=== PATIENT | female | born 1970 | race Caucasian/White ===

== ENCOUNTER 2017-03-03 19:00 | Inpatient (IN) | payer SELFPAY ==
[2017-03-03 19:37] LABS: % IMMATURE GRANULYOCYTES 0.1 % (0.0-1.1); ABSOLUTE IMMATURE GRANULOCYTES 0.01 10^3/uL (0.00-0.10); ADD DIFF? NO; ADD MORPH? NO; ADD SCAN? NO; ATYPICAL LYMPHOCYTE FLAG 0 (0-99); FRAGMENT RBC FLAG 0 (0-99); HEMATOCRIT 41.3 % (38.0-47.0); LEFT SHIFT FLG 0 (0-99); LIPEMIA HEMOLYSIS FLAG 90 (0-99); MEAN CELL HEMOGLOBIN 29.7 pg (27.9-34.1); MEAN CELL HEMOGLOBIN CONCENTR. 33.9 g/dL (32.4-36.7); MEAN CELL VOLUME 87.7 fL (81.5-99.8); MEAN PLATELET VOLUME 8.8 fL (8.7-11.7); PLATELET CLUMPS FLAG 0 (0-99); PLATELET COUNT 253 10^3/uL (150-400); RED BLOOD CELL COUNT 4.71 10^6/uL (4.18-5.33)
[2017-03-03 19:51] LABS: ANION GAP 15 mEq/L (8-16); CALCIUM 9.2 mg/dL (8.5-10.4); CARBON DIOXIDE 21 mEq/l (22-31); CHLORIDE 102 mEq/L (97-110); CREATININE 0.6 mg/dL (0.6-1.0); ETHANOL SERUM < 10 mg/dL (0-10); GLOMERULAR FILTRATION RATE > 60; GLUCOSE 99 mg/dL (70-100); POTASSIUM 3.5 mEq/L (3.5-5.2); SODIUM 138 mEq/L (134-144)
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
[2017-03-04] MEDS ORDERED: ACETAMINOPHEN 325 MG TAB PO PRN (03:51)
[2017-03-04] MEDS ORDERED: LORazepam 0.5 MG TAB PO PRN (03:51)
[2017-03-04] MEDS ORDERED: NICOTINE POLACRILEX 2 MG GUM B PRN (03:51)
[2017-03-04] MEDS ORDERED: MAGNESIUM HYDROXIDE 30 ML UDCUP PO PRN (03:51)
[2017-03-04] MEDS ORDERED: MAG HYDROX/AL HYDROX/SIMETH 30 ML UDCUP PO PRN (03:51)
[2017-03-04] MEDS ORDERED: OLANZapine 5 MG TAB PO PRN (03:52)
[2017-03-04] MEDS ORDERED: MELATONIN 3 MG TAB PO PRN (03:53)
[2017-03-04 04:28] LABS: ALANINE AMINOTRANSFERASE 28 IU/L (9-52); ALBUMIN 3.7 g/dL (3.5-5.0); ALKALINE PHOSPHATASE 59 IU/L (38-126); ASPARTATE AMINOTRANSFERASE 21 IU/L (14-46); BILIRUBIN,TOTAL 0.5 mg/dL (0.1-1.4); BILIRUBIN-CONJUGATED 0.1 mg/dL (0.0-0.5); BILIRUBIN-UNCONJUGATED 0.4 mg/dL (0.0-1.1); MAGNESIUM 1.8 mg/dL (1.6-2.3); TOTAL PROTEIN 7.3 g/dL (6.3-8.2)
[2017-03-04 05:18] VITALS: RESP 14
--- NOTE | 2017-03-04 13:29 | BCON ---
[f rep st] BEHAVIORAL HEALTH CONSULTATION INTERNAL MEDICINE CONSULTATION DATE OF CONSULTATION: 03/04/2017 REFERRING PHYSICIAN: Nadira Sebastian MD REASON FOR CONSULTATION: Medical clearance for inpatient behavioral health stay. HISTORY OF PRESENT ILLNESS: This patient was brought to the emergency department for a court-ordered mental health evaluation. The petitioner had been her brother who noted that she was isolating, del usional and not taking care of herself. She was evaluated by the mental health team and admitted for further psychiatric care. Currently, she has no acute complaints. PAST SURGICAL HISTORY: She had an anterior cruciate ligament repair on one leg. Otherwise, she titi es any past surgical history. PAST MEDICAL HISTORY: She has a torn anterior cruciate ligament on the other leg. Otherwise, she de nies any past medical history. MEDICATIONS: She was on no medications. ALLERGIES: There are no known drug allergies. SOCIAL HISTORY: She reports that she is retired. She had a career as a surgical nurse. She is a no nsmoker. She does not use alcohol. FAMILY HISTORY: Noncontributory. REVIEW OF SYSTEMS: She reports an approximately 15 pound weight loss over several months. She think s it is because she stopped rock climbing and stopped eating meat, and so has had loss of muscle mass . She reports a normal appetite. She has no nausea, vomiting, constipation, or diarrhea. Otherwise , a 10-point review of systems was negative. PHYSICAL EXAM: VITAL SIGNS: Blood pressure is 120/80, heart rate is 77, respiratory rate is 14, oxy gen saturation is 95% in room air, temperature is 36.4 degrees centigrade. Her weight is 55.4 kg for a body mass index of 19.1. GENERAL: This is a thin woman who appears her chronologic age, cooperat sharath and in no acute distress. HEENT: Extraocular movements are intact. Pupils are equal, round, an d reactive to light. Mucous membranes are moist. Dentition is in good condition. She has an uncrow ded airway, Mallampati class 1. There are no oropharyngeal mucosal lesions and no posterior orophary ngeal mucus. NECK: Supple, with no thyromegaly. HEART: There is a regular rate and rhythm with no murmurs, rubs, or gallops. LUNGS: Clear to auscultation bilaterally. ABDOMEN: Soft, nontender, n ondistended, with normoactive bowel sounds. EXTREMITIES: There is no cyanosis, clubbing, or edema. NEUROLOGIC: She is alert and oriented x3. Cranial nerves 2-12 are grossly intact. There is no foc al weakness. Sensation is intact to light touch. LABORATORY STUDIES: Drawn in the emergency department: CBC revealed an elevated white count at 11.1 with no left shift, otherwise CBC was within normal limits. Serum chemistry revealed a slightly low carbon dioxide at 21, otherwise renal function, electrolytes, and liver functions were within normal limits. Vitamin B12 was normal. TSH was normal at 2.72. Toxicology screen in the serum was negati ve for ethyl alcohol, and in the urine was negative for any substances of abuse. ASSESSMENT AND PLAN: 1. Mental health issues, pending further evaluation and management per Psychiatry and the mental [facility] team. 2. Weight loss. The laboratory evaluation done in the emergency department did not show any etiolog y. It may be due to her psychiatric state. If weight loss continues despite a normal appetite, then further evaluation, including age-appropriate cancer screens, would be in order. I see no medical contraindications to this patient's continued stay [facility] the [facility] or to any psychiatric medications or procedures. Thank you very much for including me in the care of this patient. Please do not hesitate to contact me or the hospitalist service should there be a need for further medical evaluation. /[id number]/MODL
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
[2017-03-06 06:43] VITALS: BP 123/66; PULSE 79; TEMP 97.4; O2SAT 97
--- NOTE | 2017-03-06 11:25 | SOAPPROG ---
SOAP Progress Note Assessment/Plan: Assessment: Plan: 03/06/17 11:26 Remains calm and cooperative with no overt admission of psychosis. I continue to believe she has been experiencing paranoid and grandiose delusions for the past year, but she has not insight into this. Despite this, she does not voice any thoughts of harm to herself or others and is able to communicate effectively with myself and staff and outlines a reasonable plan to care for herself in the community. Will continue to observe on the unit, build therapeutic alliance. Will continue to offer antipsychotic medications. Will decide on d/c tomorrow. Subjective: LATE ENTRY FOR 03/05/17. Pt seen, discussed with staff. Reports feeling well, though slept restlessly last night. Discussed at length her plans for when she leaves the hospital. She states she will return to her condo, do some cleaning including vacuuming, go to the grocery to buy some food, go to [employer] to check email. She states she feels safe and "excited about the future." She denies any feelings of paranoia, stating she is encouraged by recent interactions with with others outside of her usual [place] of friends and family. She remains confused about why her brother thought she needed to be in the hospital, stating, "We just had a nice talk the other day. He came over to my house and we sat on the couch and talked about lots of things. He never mentioned he was concerned about anything." She continues to refuse to allow us to contact her brother as she believes it may affect her ability to d/c from the hospital. She is aware that I have reviewed the affidavit he supplied for the court ordered evaluation. She continues to decline any psychotropic medications. I reviewed with her that I believe she has some delusional processes and that she could be helped by antipsychotic medications. She disagrees. She continues to participate in therapeutic activities, though spends considerable time alone in her room also. No behavioral issues noted. Objective: Vital Signs Temp Pulse Resp BP Pulse Ox 36.3 C 79 14 123/66 H 97 03/06/17 06:00 03/06/17 06:00 03/06/17 06:00 03/06/17 06:00 03/06/17 06:00 MSE: Well-groomed, calm and coop. Affect is euthymic, stable, approp. Mood is "good." TP linear. TC reveals no overt mention of paranoid thoughts or IOR' s. She denies AH's or paranoia on direct questioning. She denies SI/HI/. - Time Spent With Patient Time Spent With Patient: 25" ICD10 Worksheet Patient Problems: Problems Problem Status Onset Gravely disabled Acute Lumbar radicular pain Acute
== END 2017-03-06 12:30 | disposition home or self-care (01) | DRG 885 ==
LOC: BBEH 03-04 03:35
PROVIDERS: ADMIT Psychiatry & Neurology Behavioral Neurology & Neuropsychiatry; ATTEND Psychiatry & Neurology Behavioral Neurology & Neuropsychiatry
DX: F22 Delusional disorders (principal); R63.4 Abnormal weight loss
CPT/HCPCS: 80305; 82607-90; G0480